=== PATIENT | male | born 1975 ===

== ENCOUNTER → 2019-04-17 | Outpatient (CLI) | payer MEDICAID ==
[2019-04-18 09:38] LABS: Hepatitis B Surface Antibody Negative
[2019-04-18 10:07] LABS: Hepatitis A Total Antibody Positive
[2019-04-18 10:36] LABS: Hepatitis B Surface Antigen Negative (Negative)
[2019-04-18 10:37] LABS: Hepatitis B Core Total AB Negative; Hepatitis C Antibody Negative (Negative)
== END | disposition home or self-care (01) ==
LOC: LAB 10:44
PROVIDERS: ATTEND Nurse Practitioner
DX: Z20.2 Contact with and (suspected) exposure to infections with a predominantly sexual mode of transmission (principal)
CPT/HCPCS: 36415; 86703; 86704; 86706; 86708; 86803; 87340